=== PATIENT | female | born 1960 | race Hispanic/Latino ===

== ENCOUNTER 2018-01-27 08:50 | Emergency (ER) | payer OTHER ==
[2018-01-27 08:54] VITALS: TEMP 98
[2018-01-27 08:55] VITALS: BMI 39.1
--- NOTE | 2018-01-27 10:01 | ED PDOC ---
Lower Extremity Pain/Injury Time Seen by Provider: 01/27/18 09:23 Chief Complaint (Nursing): Lower Extremity Problem/Injury Chief Complaint (Provider): Fall History Per: Patient History/Exam Limitations: no limitations Additional Complaint(s): Pt states she tripped and fell on even pavement yesterday, now c/o mild bilateral knee pain, no head injury. Pt able to ambulate without difficulty, last took Motrin yesterday. Denies paresthesias, weakness. - Knee Description Of Injury: Fell Alleviating Factor(s): OTC Pain Medication Past Medical History Reviewed: Nursing Documentation, Vital Signs Vital Signs: Last Vital Signs Temp 98 F 01/27/18 08:54 Pulse 82 01/27/18 08:54 Resp BP 141/76 01/27/18 08:54 Pulse Ox 96 01/27/18 08:54 - Medical History PMH: Diabetes, HTN, Malignancy (Breast) - Family History Family History: States: Unknown Family Hx - Living Arrangements Living Arrangements: With Family - Social History Current smoker - smoking cessation education provided: No Alcohol: None - Home Medications Home Medications: Ambulatory Orders Medication Instructions Recorded Ibuprofen [Motrin] 600 mg PO Q6H PRN #20 tab 01/27/18 - Allergies Allergies/Adverse Reactions: Allergies Allergy/AdvReac Type Severity Reaction Status Date / Time Penicillins Allergy Mild RASH Verified 01/27/18 09:37 Review of Systems Constitutional: Negative for: Fever Eyes: Negative for: Vision Change Cardiovascular: Negative for: Chest Pain Respiratory: Negative for: Cough Gastrointestinal: Negative for: Abdominal Pain Musculoskeletal: Positive for: Leg Pain. Negative for: Neck Pain, Back Pain Skin: Negative for: Rash, Lesions Neurological: Negative for: Headache, Dizziness Physical Exam - Reviewed Nursing Documentation Reviewed: Yes Vital Signs Reviewed: Yes - Physical Exam Appears: Positive for: Well, No Acute Distress Head Exam: Positive for: ATRAUMATIC, NORMAL INSPECTION Skin: Positive for: Normal Color, Warm, Dry Back: Positive for: Normal Inspection Extremity: Positive for: Normal ROM, Tenderness (Mild anterior knee), Capillary Refill (<2 sec), Other (Ecchymosis R inferior to knee X 2, L inferior to knee X 1). Negative for: Pedal Edema, Calf Tenderness, Deformity, Swelling Neurologic/Psych: Positive for: Alert, Oriented. Negative for: Motor/Sensory Deficits - ECG O2 Sat by Pulse Oximetry: 96 Medical Decision Making Medical Decision Makin yo female with bilateral knee pain s/p fall. - XR bilateral knee - Motrin Accession No. : [id number] Patient Name / ID : THAIS JOHNSON / [id number] Exam Date : 01/27/2018 09:45:40 ( Approved ) Study Comment : Sex / Age : F / 57Y Creator : Christo Frost MD Dictator : Christo Frost MD Commercial Real Estate Agent : Museum Educator : Christo Frost MD Approver2 : Report Date : 01/27/2018 14:51:47 My Comment : Date of service: 01/27/2018 PROCEDURE: Bilateral Knee Radiographs. HISTORY: Fall, bilateral knee pain COMPARISON: None. FINDINGS: BONES: Right Knee: No acute fracture. Left Knee: No acute fracture. JOINTS: Right Knee: Unremarkable. Left knee: Unremarkable. SOFT TISSUES: Right Knee: Normal. Left Knee: Normal. JOINT EFFUSION: Right Knee: None. Left Knee: None. OTHER FINDINGS: None. IMPRESSION: No demonstrated fracture, dislocation or evidence of significant arthritic change. Minor wrap placed bilaterally. Disposition - Clinical Impression Clinical Impression: Bilateral knee pain - Disposition Disposition: Routine/Home Disposition Time: 11:20 Condition: STABLE Additional Instructions: FOLLOW-UP WITH PMD WITHIN 2 DAYS FOR REEVALUATION. Prescriptions: Ibuprofen [Motrin] 600 mg PO Q6H PRN #20 tab PRN Reason: Pain, Moderate (4-7) Instructions: Contusion (DC), Knee Pain Forms: [employer] ([place]ian)
[2018-01-27 11:42] VITALS: BP 100/70; PULSE 74; RESP 20
--- NOTE | 2018-01-27 14:53 | RAD ---
Date of service: 01/27/2018 PROCEDURE: Bilateral Knee Radiographs. HISTORY: Fall, bilateral knee pain COMPARISON: None. FINDINGS: BONES: Right Knee: No acute fracture. Left Knee: No acute fracture. JOINTS: Right Knee: Unremarkable. Left knee: Unremarkable. SOFT TISSUES: Right Knee: Normal. Left Knee: Normal. JOINT EFFUSION: Right Knee: None. Left Knee: None. OTHER FINDINGS: None. IMPRESSION: No demonstrated fracture, dislocation or evidence of significant arthritic change.
[2018-01-28 15:01] VITALS: O2SAT 96
== END 2018-01-27 11:40 | disposition home or self-care (01) ==
LOC: H.ER 08:50
DX: M25.562 Pain in left knee (principal); M25.561 Pain in right knee; W01.0XXA Fall on same level from slipping, tripping and stumbling without subsequent striking against object, initial encounter; E11.9 Type 2 diabetes mellitus without complications; I10 Essential (primary) hypertension; Z85.3 Personal history of malignant neoplasm of breast; Z88.0 Allergy status to penicillin